=== PATIENT | female | born 2000 | race Caucasian/White ===

== ENCOUNTER 2020-03-15 00:24 | Emergency (ER) | payer OTHER ==
[~2020-03-15] VITALS: Ht 172.7 cm; Wt 59.1 kg
[2020-03-15 00:29] VITALS: TEMP 98.1
[2020-03-15] MEDS ORDERED: CRUTCHES MC (02:12)
[2020-03-15 02:16] VITALS: BP 126/80; PULSE 98
== END 2020-03-15 02:23 | disposition home or self-care (01) ==
LOC: COL.ER 00:24
DX: S93.602A Unspecified sprain of left foot, initial encounter (principal); S00.03XA Contusion of scalp, initial encounter; S80.211A Abrasion, right knee, initial encounter; S50.312A Abrasion of left elbow, initial encounter; S90.812A Abrasion, left foot, initial encounter; V00.131A Fall from skateboard, initial encounter